=== PATIENT | female | born 1965 | race Caucasian/White ===

== ENCOUNTER 2017-05-02 14:28 | Emergency (ER) | payer OTHER | END 2017-05-02 18:01 | disposition home or self-care (01) | LOC: FTE 14:28 | DX: J45.901 Unspecified asthma with (acute) exacerbation (principal); I10 Essential (primary) hypertension; E11.9 Type 2 diabetes mellitus without complications; E66.01 Morbid (severe) obesity due to excess calories; Z63.4 Disappearance and death of family member; Z68.43 Body mass index [BMI] 50.0-59.9, adult | CPT/HCPCS: 99284; Z7502 ==

== ENCOUNTER 2017-05-13 15:29 | Emergency (ER) | payer OTHER ==
[2017-05-13] MEDS: DEXAMETHASONE 10 MG/ML 1 ML INJ IM (17:35)
[2017-05-13] MEDS ORDERED: ALBUTEROL/IPRATROPIUM (NEB) 3 ML AMP HHN (17:39)
[2017-05-13] MEDS: ALBUTEROL 0.083% (NEB) 2.5 MG/3 ML AMP HHN (17:47)
[2017-05-13] MEDS: IPRATROPIUM (NEB) 0.5 MG/2.5 ML AMP HHN (17:47)
[2017-05-13] MEDS: CEFTRIAXONE 1 GM/50 ML (PMX) 50 ML IVPB (18:01)
[2017-05-13] MEDS: DEXAMETHASONE 10 MG/ML 1 ML INJ IV (18:02)
[2017-05-13] MEDS: SOD CHLORIDE 0.9% 1,000 ML IV ×2 (18:12)
[2017-05-13 18:19] LABS: ADD UMIC NO; UR ASCORBIC ACID NEGATIVE (NEGATIVE); UR BILIRUBIN (Dip) NEGATIVE (NEGATIVE); UR BLOOD (Dip) NEGATIVE (NEGATIVE); UR CLARITY CLEAR (CLEAR); UR COLOR STRAW (YELLOW); UR GLUCOSE (Dip) NEGATIVE (NEGATIVE); UR KETONES (Dip) NEGATIVE (NEGATIVE); UR LEUKOCYTE ESTERASE (Dip) NEGATIVE Leu/ul (NEGATIVE); UR NITRITE (Dip) NEGATIVE (NEGATIVE); UR SPECIFIC GRAVITY (Dip) 1.012 (1.003-1.030); UR TOTAL PROTEIN (Dip) NEGATIVE (NEGATIVE); UR UROBILINOGEN (Dip) NEGATIVE (NEGATIVE)
[2017-05-13 19:06] LABS: LACTIC ACID 2.2 mmol/L (0.5-2.0)
[2017-05-13] MEDS: morphine 2 MG INJ IV (20:03)
[2017-05-13 20:32] LABS: ALANINE AMINOTRANSFERASE 51 IU/L (13-69); ALBUMIN/GLOBULIN RATIO 1.14; ALKALINE PHOSPHATASE 137 IU/L (42-121); ANION GAP 17 (8-16); ASPARTATE AMINO TRANSFERASE 62 IU/L (15-46); BLOOD UREA NITROGEN 15 mg/dl (7-20); CALCIUM 9.1 mg/dl (8.4-10.2); CARBON DIOXIDE 21 mmol/L (21-31); CHLORIDE 100 mmol/L (97-110); CREATININE 0.67 mg/dl (0.44-1.00); GLUCOSE 252 mg/dl (70-220); POTASSIUM 4.4 mmol/L (3.5-5.1); SODIUM 134 mmol/L (135-144); TOTAL PROTEIN 7.5 g/dl (6.1-8.1)
[2017-05-13 20:48] LABS: TROPONIN-I < 0.012 ng/ml (0.00-0.12)
[2017-05-13] MEDS: SODIUM CHLORIDE 0.9% 1L BAG IV* (21:07)
[2017-05-13 21:25] LABS: ADD MAN DIFF? NO
[2017-05-13 21:27] LABS: WHITE BLOOD COUNT 9.7 10^3/ul (4.8-10.8)
[2017-05-13 21:27] LABS: BASOPHILS % 0.2 % (0.0-2.0); EOSINOPHILS % 0.4 % (0.0-7.0); HEMATOCRIT 35.2 % (37.0-47.0); HEMOGLOBIN 12.1 g/dl (12.0-16.0); LYMPHOCYTES # 0.6 10^3/ul (0.8-2.9); LYMPHOCYTES % 6.4 % (15.0-51.0); MEAN CORPUSCULAR HEMOGLOBIN 29.6 pg (29.0-33.0); MEAN CORPUSCULAR HGB CONC 34.4 g/dl (32.0-37.0); MEAN CORPUSCULAR VOLUME 86.1 fl (82.0-101.0); MONOCYTE # 0.5 10^3/ul (0.3-0.9); MONOCYTES % 5.2 % (0.0-11.0); NEUTROPHIL # 8.4 10^3/ul (1.6-7.5); NEUTROPHILS % 87.3 % (39.0-77.0); PLATELET COUNT 276 10^3/UL (140-415); RED BLOOD COUNT 4.09 10^6/ul (4.20-5.40); RED CELL DISTRIBUTION WIDTH 14.1 % (11.5-14.5)
[2017-05-13 21:57] LABS: D-DIMER 2199.28 ng/ml (<460)
[2017-05-14] MEDS: IOHEXOL 300MG/ML 150 ML BTL (00:19)
[2017-05-14] MEDS: SOD CHLORIDE 0.9% 100 ML (00:19)
== END 2017-05-14 02:20 | disposition short-term general hospital (02) ==
LOC: FTE 05-14 02:20
DX: J45.31 Mild persistent asthma with (acute) exacerbation (principal); R07.1 Chest pain on breathing; I10 Essential (primary) hypertension; E11.9 Type 2 diabetes mellitus without complications
CPT/HCPCS: 71045; 71275; 80053; 81003; 83605; 84484; 85025; 85378; 87040; 87400; 93005; 94664; 96372; 96374; 96375; 99285-25